=== PATIENT | male | born 1980 | race Caucasian/White ===

== ENCOUNTER 2016-09-21 11:59 | Emergency (ER) | payer MEDICAID, MEDICARE ==
[2016-09-21] MEDS ORDERED: HYDROMORPHONE HCL INJ/PF 2 MG/ML AMPULE IM ONE (12:42)
[2016-09-21] MEDS ORDERED: KETOROLAC TROMETHAMINE 60 MG/2 ML SDV IM ONE (12:42)
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
[2016-09-21 13:45] VITALS: BP 116/74
== END 2016-09-21 13:35 | disposition home or self-care (01) ==
LOC: ER 11:59
DX: M54.5 Low back pain (principal); F17.200 Nicotine dependence, unspecified, uncomplicated; Z90.49 Acquired absence of other specified parts of digestive tract
CPT/HCPCS: 99283; 96372; J1885; J1170